=== PATIENT | female | born 2000 ===

== ENCOUNTER 2020-08-10 02:27 | Emergency (ER) | payer SELFPAY ==
[2020-08-10] MEDS ORDERED: EPINEPHrine 1 MG/10 ML SYR IV ONE (02:28)
[2020-08-10] MEDS ORDERED: NA CHLORIDE 0.9% 2,000 ML ONE (02:33)
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
[2020-08-10 06:30] VITALS: TEMP 94.3
[2020-08-10] MEDS ORDERED: NA CHLORIDE 0.9% 1,000 ML ONE (07:05)
== END 2020-08-10 06:12 ==
LOC: ER 02:27 → MERGE 02:27 → EDBD 02:27 → ER 06:12
DX: I46.9 Cardiac arrest, cause unspecified (principal); Y93.89 Activity, other specified; Y92.828 Other wilderness area as the place of occurrence of the external cause
CPT/HCPCS: 36415; 82947; 92950; 92960; 96374; 96375; 99285; J0171; J7030